=== PATIENT | male | born 1980 | race Hispanic/Latino ===

== ENCOUNTER 2017-06-24 17:02 | Emergency (ER) | payer BC ==
[~2017-06-24] VITALS: Ht 175.3 cm; Wt 88.5 kg
[2017-06-24] MEDS ORDERED: NORCO 5-325 TA1 EACH PO (18:56)
== END 2017-06-24 19:13 | disposition home or self-care (01) ==
LOC: ED 17:02
PROC: 0LQ83ZZ Repair Left Hand Tendon, Percutaneous Approach (ICD-10-PCS; principal; 2017-06-24)
DX: S66.922A Laceration of unspecified muscle, fascia and tendon at wrist and hand level, left hand, initial encounter (principal); W29.3XXA Contact with powered garden and outdoor hand tools and machinery, initial encounter
CPT/HCPCS: 12004; 90471; 90715; 99283

== ENCOUNTER 2021-06-01 10:02 | Emergency (ER) | payer BC ==
[~2021-06-01] VITALS: Ht 175.3 cm; Wt 88.5 kg
[~2021-06-01 10:02] MED LIST: NORCO 5-325 TA1 EACH PO
--- OUTSIDE RECORDS SUMMARY | 2021-06-01 10:10 | XMS ---
PreManage Notification: STAR ROLBES Security Manager Hematology Events No recent Security Events currently on file CRITERIA MET - Group Notification CARE PROVIDERS ANTONIO MAC Physician Online Marketing Analyst Current PHONE: [phone] Ricardo has no Care Guidelines for this patient. EBrendan VISIT COUNT (12 MO.) 1 KOL[facility] Bertrand TOTAL 1 NOTE: Visits indicate total known visits. ED/UCC VISIT TRACKING (12 MO.) 06/01/2021 10:03 [facility] Parra OR TYPE: Emergency COMPLAINT: - COUGH, FEVER, N/V INPATIENT VISIT TRACKING (12 MO.) No inpatient visits to display in this time frame [id number]
[2021-06-01] MEDS ORDERED: VENTOLIN HFA18 GM INH (12:16)
[2021-06-01] MEDS ORDERED: ZOFRAN4 MG PO (12:16)
== END 2021-06-01 12:30 | disposition home or self-care (01) ==
LOC: ED 10:02
DX: U07.1 COVID-19 (principal); J12.82 Pneumonia due to coronavirus disease 2019
CPT/HCPCS: 71045; 96374; 96375; 99284-25; J1885; J2405; J7030